=== PATIENT | male | born 1985 | race Hispanic/Latino ===

== ENCOUNTER 2016-07-01 23:10 | Emergency (ER) | payer MEDICARE ==
[2016-07-02 00:34] LABS: Basophils % (Auto) 0.3 % (0.0-1.8); Eosinophils % (Auto) 2.5 % (0.0-4.3); Hematocrit 43.4 % (35.5-45.6); Hemoglobin 14.6 gm/dl (11.8-15.2); Mean Corpuscular HGB Conc 34 % (32-34); Mean Corpuscular Hemoglobin 31 pg (28-32); Mean Corpuscular Volume 93 fl (84-94); Platelet Count 210 K/mm3 (140-440); Red Blood Count 4.65 M/mm3 (3.65-5.03); Red Cell Distribution Width 13.4 % (13.2-15.2); White Blood Count 7.8 K/mm3 (4.5-11.0)
[2016-07-02 00:52] LABS: Anion Gap 19 mmol/L; BUN/Creatinine Ratio 10.76; Blood Urea Nitrogen 14 mg/dL (9-20); Calcium 9.2 mg/dL (8.4-10.2); Carbon Dioxide 25 mmol/L (22-30); Chloride 103.6 mmol/L (98-107); Glucose 81 mg/dL (75-100); Potassium 3.8 mmol/L (3.6-5.0); Sodium 144 mmol/L (137-145)
[2016-07-02 06:33] LABS: Urine Drugs of Abuse Note Disclamer
[2016-07-02 06:58] LABS: Bilirubin,Urine NEG (Negative); Blood,Urine NEG (Negative); Ketones,Urine TR mg/dL (Negative); Leukocyte Esterase,Urine TR (Negative); Mucus,Urine FEW /HPF; Nitrite,Urine NEG (Negative); Protein,Urine <15 mg/dL mg/dL (Negative); Urobilinogen,Urine < 2.0 mg/dL (<2.0)
--- NOTE | 2016-07-02 07:47 | Emergency Department Report ---
ED Psych HPI - General Chief Complaint: Psych Stated Complaint: MEDICAL CLEARANCE Time Seen by Provider: 07/02/16 07:35 Source: patient Mode of arrival: Ambulatory Limitations: No Limitations - History of Present Illness Initial Comments: 31-year-old male with a past medical history alcohol abuse presents to the hospital complains of requesting readmission into inpatient [facility] substance abuse program. Patient was enrolled into the program for alcohol abuse. He left because yesterday was his birthday and drank alcohol. Now he presents to the hospital requesting to be placed back into inpatient treatment. No physical complaints reported. No reports of suicidal homicidal ideation. - Related Data Home Medications Medication Instructions Recorded Confirmed Last Taken Divalproex Dr [Depakote Dr] 500 mg PO BID 07/02/16 07/02/16 Unknown OLANzapine [ZyPREXA] 15 mg PO QDAY 07/02/16 07/02/16 Unknown Allergies Allergy/AdvReac Type Severity Reaction Status Date / Time No Known Allergies Allergy Verified 07/02/16 00:16 ED Review of Systems ROS: Stated complaint: MEDICAL CLEARANCE Other details as noted in HPI Comment: All other systems reviewed and negative Other: Constitutional: No fevers chills Eyes: No eye pain visual changes ENT: No ear pain or throat pain Neck: Denies pain Respiratory: Denies cough wheezing shortness of breath Cardiovascular: Denies chest pain, palpitations, syncope GI: Denies abdominal pain, nausea, vomiting, diarrhea : Denies dysuria, no penile d/c Musculoskeletal: Denies back pain Skin: Denies rash, lesions, erythema Neurologic: Denies headache, numbness, weakness Psychiatric: Denies suicidal ideation, hallucinations ED Past Medical Hx - Past Medical History Previous Medical History?: Yes Additional medical history: ETOH ABUSE - Surgical History Past Surgical History?: No - Social History Smoking Status: Current Every Day Smoker Substance Use Type: Alcohol - Medications Home Medications: Home Medications Medication Instructions Recorded Confirmed Last Taken Type Divalproex Dr [Depakote Dr] 500 mg PO BID 07/02/16 07/02/16 Unknown History OLANzapine [ZyPREXA] 15 mg PO QDAY 07/02/16 07/02/16 Unknown History ED Physical Exam - General Limitations: No Limitations - Other Other exam information: General: No limitations, patient is alert in no acute distress Head exam: Atraumatic, normocephalic Eyes exam: Normal appearance ENT: Moist mucous membrane, normal oropharynx Neck exam: Normal inspection, full range of motion, no meningismus nontender Respiratory exam: Clear to auscultation bilateral, no wheezes, rales, crackles Cardiovascular: Normal rate and rhythm, normal heart sounds Abdomen: Soft, nondistended, and nontender, with normal bowel sounds, no rebound, or guarding Extremity: Full range of motion normal inspection no deformity Back: Normal Inspection, full range of motion, no tenderness Neurologic: Alert, oriented x3, cranial nerves intact, no motor or sensory deficit Psychiatric: normal affect, normal mood Skin: Warm, dry, intact ED Course Vital Signs 07/02/16 07/02/16 07/02/16 00:17 03:03 06:20 Temperature 97.5 F L 97.7 F Pulse Rate 107 H 103 H Respiratory 18 18 18 Rate Blood Pressure 133/81 145/85 Blood Pressure [Right] O2 Sat by Pulse 97 97 98 Oximetry 07/02/16 07/02/16 08:15 14:40 Temperature 98.0 F 98.1 F Pulse Rate 76 73 Respiratory 20 18 Rate Blood Pressure Blood Pressure 112/74 123/84 [Right] O2 Sat by Pulse 98 98 Oximetry - Reevaluation(s) Reevaluation #1: 07/02/16 14:47 Pt remains stable. I was informed at this time pt has been re-accepted into inpatient treatment program - Consultations Consultation #1: 07/02/16 07:46 Mental health evaluation requested ED Medical Decision Making - Lab Data Result diagrams: 07/02/16 00:25 07/02/16 00:25 Lab Results 07/02/16 07/02/16 07/02/16 Range/Units 00:25 00:25 00:25 WBC 7.8 (4.5-11.0) K/mm3 RBC 4.65 (3.65-5.03) M/mm3 Hgb 14.6 (11.8-15.2) gm/dl Hct 43.4 (35.5-45.6) % MCV 93 (84-94) fl MCH 31 (28-32) pg MCHC 34 (32-34) % RDW 13.4 (13.2-15.2) % Plt Count 210 (140-440) K/mm3 Lymph % (Auto) 48.5 H (13.4-35.0) % [place] % (Auto) 8.1 H (0.0-7.3) % Eos % (Auto) 2.5 (0.0-4.3) % Baso % (Auto) 0.3 (0.0-1.8) % Lymph # 3.8 (1.2-5.4) K/mm3 [place] # 0.6 (0.0-0.8) K/mm3 Eos # 0.2 (0.0-0.4) K/mm3 Baso # 0.0 (0.0-0.1) K/mm3 Seg Neutrophils % 40.6 (40.0-70.0) % Seg Neutrophils # 3.2 (1.8-7.7) K/mm3 Sodium 144 (137-145) mmol/L Potassium 3.8 (3.6-5.0) mmol/L Chloride 103.6 (98-107) mmol/L Carbon Dioxide 25 (22-30) mmol/L Anion Gap 19 mmol/L BUN 14 (9-20) mg/dL Creatinine 1.3 (0.8-1.5) mg/dL Estimated GFR > 60 ml/min BUN/Creatinine Ratio 10.76 % Glucose 81 (75-100) mg/dL Calcium 9.2 (8.4-10.2) mg/dL Urine Color (Yellow) Urine Turbidity (Clear) Urine pH (5.0-7.0) Ur Specific [place] (1.003-1.030) Urine Protein (Negative) mg/dL Urine Glucose (UA) (Negative) mg/dL Urine Ketones (Negative) mg/dL Urine Blood (Negative) Urine Nitrite (Negative) Urine Bilirubin (Negative) Urine Urobilinogen (<2.0) mg/dL Ur Leukocyte Esterase (Negative) Urine WBC (Auto) (0.0-6.0) /HPF Urine RBC (Auto) (0.0-6.0) /HPF U Epithel Cells (Auto) (0-13.0) /HPF Urine Mucus /HPF Urine Opiates Screen Urine Methadone Screen Ur Barbiturates Screen Ur Phencyclidine Scrn Ur Amphetamines Screen U Benzodiazepines Scrn Urine Cocaine Screen U Marijuana (THC) Screen Drugs of Abuse Note Plasma/Serum Alcohol 0.22 H (0-0.07) gm% 07/02/16 07/02/16 07/02/16 Range/Units 06:20 06:20 08:30 WBC (4.5-11.0) K/mm3 RBC (3.65-5.03) M/mm3 Hgb (11.8-15.2) gm/dl Hct (35.5-45.6) % MCV (84-94) fl MCH (28-32) pg MCHC (32-34) % RDW (13.2-15.2) % Plt Count (140-440) K/mm3 Lymph % (Auto) (13.4-35.0) % [place] % (Auto) (0.0-7.3) % Eos % (Auto) (0.0-4.3) % Baso % (Auto) (0.0-1.8) % Lymph # (1.2-5.4) K/mm3 [place] # (0.0-0.8) K/mm3 Eos # (0.0-0.4) K/mm3 Baso # (0.0-0.1) K/mm3 Seg Neutrophils % (40.0-70.0) % Seg Neutrophils # (1.8-7.7) K/mm3 Sodium (137-145) mmol/L Potassium (3.6-5.0) mmol/L Chloride (98-107) mmol/L Carbon Dioxide (22-30) mmol/L Anion Gap mmol/L BUN (9-20) mg/dL Creatinine (0.8-1.5) mg/dL Estimated GFR ml/min BUN/Creatinine Ratio % Glucose (75-100) mg/dL Calcium (8.4-10.2) mg/dL Urine Color Yellow Yellow (Yellow) Urine Turbidity Clear Clear (Clear) Urine pH 6.0 7.0 (5.0-7.0) Ur Specific [place] 1.024 1.021 (1.003-1.030) Urine Protein <15 mg/dl <15 mg/dl (Negative) mg/dL Urine Glucose (UA) Neg Neg (Negative) mg/dL Urine Ketones Tr Neg (Negative) mg/dL Urine Blood Neg Neg (Negative) Urine Nitrite Neg Neg (Negative) Urine Bilirubin Neg Neg (Negative) Urine Urobilinogen < 2.0 < 2.0 (<2.0) mg/dL Ur Leukocyte Esterase Tr Neg (Negative) Urine WBC (Auto) 7.0 H 1.0 (0.0-6.0) /HPF Urine RBC (Auto) 4.0 1.0 (0.0-6.0) /HPF U Epithel Cells (Auto) 5.0 2.0 (0-13.0) /HPF Urine Mucus Few Few /HPF Urine Opiates Screen Presumptive negative Urine Methadone Screen Presumptive negative Ur Barbiturates Screen Presumptive negative Ur Phencyclidine Scrn Presumptive negative Ur Amphetamines Screen Presumptive negative U Benzodiazepines Scrn Presumptive negative Urine Cocaine Screen Presumptive negative U Marijuana (THC) Screen Presumptive positive Drugs of Abuse Note Disclamer Plasma/Serum Alcohol (0-0.07) gm% - Medical Decision Making UA was repeated due to [id number] leukocytosis. After patient claims the tip of the penis prior to urination there are no white cells in the urine therefore patient does not have a UTI, elevated wbc count, and unlikely has an STD. Gonorrhea and chlamydia was sent based on initial UA but I am less concerned at this time since the second UA was normal and negative for infection. Patient is medically cleared to be readmitted into inpatient alcohol treatment program. Initial presenting tachycardia has since improved without any ED intervention - Differential Diagnosis substance abuse, alcohol abuse Critical Care Time: No Critical care attestation.: If time is entered above; I have spent that time in minutes in the direct care of this critically ill patient, excluding procedure time. ED Disposition Clinical Impression: Alcohol abuse, Marijuana use, Medical clearance for psychiatric admission Disposition: DC/TX PSY HOSP/PSY UNIT Is pt being admited?: Yes Condition: Stable Time of Disposition: 15:01 (awaiting transport)
[2016-07-02 09:20] LABS: Bilirubin,Urine NEG (Negative); Blood,Urine NEG (Negative); Ketones,Urine NEG (Negative); Leukocyte Esterase,Urine NEG (Negative); Mucus,Urine FEW /HPF; Nitrite,Urine NEG (Negative); Protein,Urine <15 mg/dL mg/dL (Negative); Urobilinogen,Urine < 2.0 mg/dL (<2.0)
--- NOTE | 2016-07-02 14:53 | Consultation ---
History of Present Illness - Reason for Consult Consult date: 07/02/16 Reason for consult: psychiatric evaluation - Chief Complaint Chief complaint: "I did something stupid" 31 year old white male seen in the ER for psyhciatric evaluation. He was at [facility] for 3 days and on his birthday, yesterday he left the facility , went to a hotel and drank alcohol and smoked marijuana. He does not remember how his family found him and brought him to ther ER. He wants to return to [facility]. Mental health diagnosis of Schizoaffective disorder, bipolar type, on medication/zyprexa & depakote. He describes his recent actions as impulsive and related to the fact it was his birthday. No current psychotic symptoms. He is remorseful. HE spent his social security check and does not have a stable living situation. No current SI/HI Medications and Allergies Allergies Allergy/AdvReac Type Severity Reaction Status Date / Time No Known Allergies Allergy Verified 07/02/16 00:16 Home Medications Medication Instructions Recorded Confirmed Last Taken Type Divalproex Dr [Depakote Dr] 500 mg PO BID 07/02/16 07/02/16 Unknown History OLANzapine [ZyPREXA] 15 mg PO QDAY 07/02/16 07/02/16 Unknown History Past psychiatric history - Past Medical History Past Medical History: hyperlipidemia Past Surgical History: No surgical history - past Psychiatric treatment and history Psych: Addictions, Bipolar, Schizophrenia psychiatric treatment history: previous treatment at [facility] [place]: 8 years ago, cut veins - Social History Social history: smoking, alcohol abuse Mental Status Exam - Vital signs Last Vital Signs Temp 98.1 F 07/02/16 14:40 Pulse 73 07/02/16 14:40 Resp 18 07/02/16 14:40 BP 123/84 07/02/16 14:40 Pulse Ox 98 07/02/16 14:40 - Exam Orientation: time, place, person Affect: depressed Mood: congruent with affect Thought content: other (no si/hi. guilt) Thought Process: Intact Perceptions: none Speech: normal rate and pattern Concentration: focused Motor activity: normal Level of consciousness: alert Memory: Recent Impaired (does not remember recent events while intoxicated. otherwise, memory intact) Sleep Symptoms: Difficulty Falling Asleep Interaction: cooperative Results Result Diagrams: 07/02/16 00:25 05/05/17 00:25 Abnormal lab results 07/02/16 07/02/16 07/02/16 Range/Units 00:25 00:25 06:20 Lymph % (Auto) 48.5 H (13.4-35.0) % [place] % (Auto) 8.1 H (0.0-7.3) % Urine WBC (Auto) 7.0 H (0.0-6.0) /HPF Plasma/Serum Alcohol 0.22 H (0-0.07) gm% All other labs normal. Assessment and Plan Assessment and plan: Impression: Alcohol use disorder, relapse during early recovery Schizoaffective disorder/bipolar type-no distressing psychotic symptoms. depression present Recommendation: Return to [facility] at [place] per his request for treatment. He meets criteria. Mental health team is coordinating this effort.
[2016-07-02 16:35] VITALS: BP 123/73
== END 2016-07-02 18:51 ==
LOC: ED 23:10
DX: F10.10 Alcohol abuse, uncomplicated (principal); Z00.8 Encounter for other general examination; F12.90 Cannabis use, unspecified, uncomplicated; F17.200 Nicotine dependence, unspecified, uncomplicated
CPT/HCPCS: 36415; 80048; 80307; 81001; 85025; 87591; 99285; G0480; 80320